=== PATIENT | male | born 1980 | race Caucasian/White ===

== ENCOUNTER 2022-12-27 17:43 | Emergency (ER) | payer OTHER ==
[2022-12-27 17:58] VITALS: TEMP 98.6
[2022-12-27] MEDS ORDERED: Sodium Chloride 0.9% 1000 ML 1,000 ML IV STA ×2 (18:08→19:34)
[2022-12-27] MEDS ORDERED: Sodium Chloride 0.9% 1000 ML 1,000 ML ONE ×2 (18:18→19:41)
[2022-12-27 18:20] LABS: Absolute Neutrophil Ct (ANC) 11.24 x10^3/uL (1.4-6.9); BASOPHIL % 0.3 % (0.0-0.4); Basophil (Absolute #) 0.05 x10^3/uL (0-0.4); Eosinophil % 0.1 % (0.00-5.0); Eosinophil (Absolute #) 0.01 x10^3/uL (0-0.5); Hematocrit 51.1 % (42-50); Hemoglobin 17.7 g/dL (12.5-18.0); IMMATURE GRAN # 0.07 x10^3u/L (0.00-0.03); IMMATURE GRAN % 0.5 % (0.00-0.4); Lymphocyte (Absolute #) 2.17 x10^3/uL (1.0-4.6); Lymphocytes % 14.9 % (24.0-44.0); Mean Cell Volume 86.6 fL (78-100); Mean Corpuscular Hgb Concent. 34.6 g/dL (32-36); Mean Platelet Volume 9.3 fL (7.5-11.0); Monocyte (Absolute #) 1.02 x10^3/uL (0.0-1.3); Neutrophil % 77.2 % (36.0-66.0); Platelet Count 370 x10^3/uL (150-450); Red Cell Distribution Width 12.7 % (11.5-14.0); White Blood Count 14.6 x10^3/uL (4.0-10.5)
[2022-12-27 18:27] LABS: INR 1.03 (0.8-3.0); PROTIME 11.2 SECONDS (9.4-12.5)
--- NOTE | 2022-12-27 18:27 | ERPHSYRPT ---
- History of Present Illness Patient Subjective Stated Complaint: PT HERE FOR NOT ACTING HE NORMAL. PT WAS BEEN BEEN IN DETENTION FOR 6 DAYS AND THIS BEHAVIOR STARTED 2 DAYS AGO. PT HAS LONG MENTAL HEALTH AND DRUG HISTORY, PT STATES HE USED SPICE AND METH 9 DAYS AGO NOW. Triage Nursing Assessment: PT ARRIVED PER OFFICER, ALERT, RESTLESS,FLIGHT OF IDEAS, STATES HE HAS BEEN SEEING THINGS AND HEARING VOICES, HE STATES HE B EEN IN [facility] RECENTLY, RESP EASY, SKIN WARM,MOIST AND PINK, MOVES ALL EXT WELL, HAND CUFFES TO LEGS AND LEFT WRIST Timing/Duration: day(s) (6) Severity: moderate Associated Symptoms: diaphoresis Hx Tetanus, Diphtheria Vaccination/Date Given: No Hx Influenza Vaccination/Date Given: No Hx Pneumococcal Vaccination/Date Given: No Immunizations Up to Date: Yes <RUDY HUPMHREYS - Last Filed: 12/27/22 18:22> <ENMA DUMONT - Last Filed: 12/27/22 22:21> - History of Present Illness Time Seen by Provider: 12/27/22 17:55 Physician History: Patient is a 42-year-old white male who presents after being in penitentiary for 6 days with profound and sudden onset of symptoms of withdrawal. 2 days ago he began with profuse sweating hallucinating both visually and auditory. He has a long psych history he has been treated at [place] [facility]. On arrival in the ER he was markedly diaphoretic but he is says that he is eating and drinking fine he has trouble sleeping at night and paces 4 hours in his cell. (RUDY HUMPHREYS) Allergies/Adverse Reactions: No Known Drug Allergies Allergy (Unverified 12/27/22 17:45) Home Medications: Mirtazapine 15 mg PO HS 12/27/22 [History] Travel Risk - International Travel Have you traveled outside of the country in past 3 weeks: No - Coronavirus Screening Are you exhibiting any of the following symptoms?: No Close contact with a COVID-19 positive Pt in past 14-21 Days: No - Vaccine Status Have you recieved a Covid-19 vaccination: Yes [employer]ical [employer] Work[employer]: Moderna - Vaccination Dates Date of 2cond Vaccination (if applicable): 2020 <RUDY HUMPHREYS - Last Filed: 12/27/22 18:22> - Review of Systems Constitutional: Night Sweats, No Fever, No Chills Eyes: No Symptoms Ears, Nose, & Throat: No Symptoms Respiratory: No Cough, No Dyspnea Cardiac: No Chest Pain, No Edema, No Syncope Abdominal/Gastrointestinal: No Abdominal Pain, No Nausea, No Vomiting, No Diarrhea Genitourinary Symptoms: No Dysuria Musculoskeletal: No Back Pain, No Neck Pain Skin: No Rash Neurological: Irritability, No Dizziness, No Focal Weakness, No Sensory Changes Psychological: Anxiety, Hallucinations Endocrine: No Symptoms Hematologic/Lymphatic: No Symptoms Immunological/Allergic: No Symptoms All Other Systems: Reviewed and Negative <MARYANN MARIERUDY - Last Filed: 12/27/22 18:22> - Past Medical History Pertinent Past Medical History: Yes Psycho-Social History: Anxiety, Attention Deficit Disorder, Bipolar, Depression - Past Surgical History Past Surgical History: No - Social History Smoking Status: Current every day smoker Exposure to second hand smoke: Yes Drug Use: bath salts, methamphetamines Patient Lives Alone: No (DETENTION) <RUDY HUMPHREYS Filed: 12/27/22 18:22> - Physical Exam General Appearance: mild distress, anxiety Eye Exam: PERRL/EOMI, eyes nml inspection Ears, Nose, Throat Exam: normal ENT inspection, TMs normal, pharynx normal, moist mucous membranes Neck Exam: normal inspection, non-tender, supple, full range of motion Respiratory Exam: normal breath sounds, lungs clear, No respiratory distress Cardiovascular Exam: regular rate/rhythm, normal heart sounds, normal peripheral pulses Gastrointestinal/Abdomen Exam: soft, normal bowel sounds, No tenderness, No mass Back Exam: normal inspection, normal range of motion, No CVA tenderness, No vertebral tenderness Extremity Exam: normal inspection, normal range of motion, pelvis stable Neurologic Exam: alert, cooperative, confusion, agitation Skin Exam: normal color, warm, dry, No rash Lymphatic Exam: No adenopathy SpO2 Interpretation: normal SpO2: 96 O2 Delivery: Room Air <MARYANN MARIERUDY Filed: 12/27/22 18:22> - Nursing Vital Signs Nursing Vital Signs: Initial Vital Signs Temperature 98.6 F 12/27/22 17:45 Pulse Rate 115 H 12/27/22 17:45 Respiratory Rate 22 12/27/22 17:45 Blood Pressure 161/103 12/27/22 17:45 O2 Sat by Pulse Oximetry 96 12/27/22 17:45 Pain Scale Pain Intensity 4 - Course Nursing assessment & vital signs reviewed: Yes EKG Interpreted by Me: RATE (105), Sinus Tach, NORMAL AXIS, NORMAL INTERVALS, No n-specific ST Changes <JULIANNRUDY - Last Filed: 12/27/22 18:22> Ordered Tests: Active Orders 24 hr Category Date Time Status ACETAMINOPHEN Stat Lab 12/27/22 18:00 Completed CBC W DIFF Stat Lab 12/27/22 18:00 Completed CMP Stat Lab 12/27/22 18:00 Completed CULTURE,URINE Stat Lab 12/27/22 21:00 Received ETHYL ALCOHOL Stat Lab 12/27/22 18:00 Completed Hepatic Function Panel Stat Lab 12/27/22 18:00 Completed Lactic Acid Stat Lab 12/27/22 18:25 Completed Lactic Acid Stat Lab 12/27/22 20:30 Completed PROTIME WITH INR Stat Lab 12/27/22 18:00 Completed SALICYLATE Stat Lab 12/27/22 18:00 Completed TROPONIN Q4H Lab 12/27/22 18:00 Completed TROPONIN Q4H Lab 12/27/22 22:11 Received UA W/RFX UR CULTURE Stat Lab 12/27/22 21:00 Completed Urine Triage Profile Stat Lab 12/27/22 21:00 Completed Medication Summary Discontinued Medications Generic Name Dose Route Start Last Admin Trade Name Freq PRN Reason Stop Dose Admin Sodium Chloride 1,000 mls @ 999 mls/hr 12/27/22 18:08 12/27/22 19:32 Sodium Chloride 0.9% 1000 Ml IV 12/27/22 19:08 Infused .Q1H1M STA Infusion Sodium Chloride Confirm 12/27/22 18:18 Sodium Chloride 0.9% 1000 Ml Administered 12/27/22 18:19 Dose 1,000 mls @ ud .ROUTE .STK-MED ONE Ceftriaxone Sodium/Dextrose 1 g in 50 mls @ 100 mls/hr 12/27/22 19:18 12/27/22 21:48 Rocephin 1 Gm-D5w 50 Ml Bag IV 12/27/22 19:47 Infused STAT STA Infusion Ceftriaxone Sodium/Dextrose Confirm 12/27/22 19:23 Rocephin 1 Gm-D5w 50 Ml Bag Administered 12/27/22 19:24 Dose 1 g in 50 mls @ ud IV .STK-MED ONE Sodium Chloride 1,000 mls @ 999 mls/hr 12/27/22 19:34 12/27/22 21:48 Sodium Chloride 0.9% 1000 Ml IV 12/27/22 20:34 Infused .Q1H1M STA Infusion Sodium Chloride Confirm 12/27/22 19:41 Sodium Chloride 0.9% 1000 Ml Administered 12/27/22 19:42 Dose 1,000 mls @ ud .ROUTE .STK-MED ONE Lorazepam 1 mg 12/27/22 19:18 12/27/22 19:24 Lorazepam 1 Mg Tablet PO 12/27/22 19:19 1 mg STAT ONE Administration Lorazepam Confirm 12/27/22 19:23 Lorazepam 1 Mg Tablet Administered 12/27/22 19:24 Dose 1 mg .ROUTE .STK-MED ONE Lab/Rad Data: Laboratory Result Diagrams 12/27/22 18:00 12/27/22 18:00 Laboratory Results 12/27/22 12/27/22 12/27/22 Range/Units 21:00 21:00 20:30 WBC (4.0-10.5) x10^3/uL RBC (4.1-5.6) x10^6/uL Hgb (12.5-18.0) g/dL Hct (42-50) % MCV (78-100) fL MCH (26-32) pg MCHC (32-36) g/dL RDW (11.5-14.0) % Plt Count (150-450) x10^3/uL MPV (7.5-11.0) fL Gran % (36.0-66.0) % Immature Gran % (Auto) (0.00-0.4) % Nucleat RBC Rel Count (0.00-0.1) % Eos # (Auto) (0-0.5) x10^3/uL Immature Gran # (Auto) (0.00-0.03) x10^3u/L Absolute Lymphs (auto) (1.0-4.6) x10^3/uL Absolute Monos (auto) (0.0-1.3) x10^3/uL Absolute Nucleated RBC (0.00-0.01) x10^3u/L Lymphocytes % (24.0-44.0) % Monocytes % (0.0-12.0) % Eosinophils % (0.00-5.0) % Basophils % (0.0-0.4) % Absolute Granulocytes (1.4-6.9) x10^3/uL Basophils # (0-0.4) x10^3/uL PT (9.4-12.5) SECONDS INR (0.8-3.0) Sodium (137-145) mmol/L Potassium (3.5-5.1) mmol/L Chloride (98-107) mmol/L Carbon Dioxide (22-30) mmol/L Anion Gap (5-15) MEQ/L BUN (9-20) mg/dL Creatinine (0.66-1.25) mg/dL Estimated GFR ML/MIN Glucose (74-106) mg/dL Lactic Acid 1.2 (0.4-2.0) Calcium (8.4-10.2) mg/dL Total Bilirubin (0.2-1.3) mg/dL Direct Bilirubin (0.0-0.4) mg/dL AST (17-59) U/L ALT (0-50) U/L Alkaline Phosphatase (38-126) U/L Troponin I (0.000-0.034) ng/mL Serum Total Protein (6.3-8.2) g/dL Albumin (3.5-5.0) g/dL Urine Color Yellow (Yellow) Urine Appearance Clear (Clear) Urine pH 5.0 (4.6-8.0) Ur Specific [place] >=1.030 A (1.005-1.030) Urine Protein 100 A (Negative) Urine Glucose (UA) Negative (Negative) mg/dL Urine Ketones 40 A (Negative) Urine Blood Small A (Negative) Urine Nitrite Negative (Negative) Urine Bilirubin Negative (Negative) Urine Urobilinogen 0.2 (0.2) mg/dL Ur Leukocyte Esterase Negative (Negative) U Hyaline Cast (Auto) 11-20 (0-2) /LPF Urine Microscopic RBC 0-2 (0-5) /HPF Urine Microscopic WBC 0-2 (0-5) /HPF Ur Epithelial Cells None Seen (None Seen) /HPF Urine Bacteria None Seen (None Seen) /HPF Urine Culture Reflexed YES (NO) Salicylates (2-20) mg/dL Urine Opiates Level NEGATIVE (NEGATIVE) Ur Methadone NEGATIVE (NEGATIVE) Acetaminophen (10-30) ug/ml Urine Barbiturates NEGATIVE (NEGATIVE) Ur Phencyclidine (PCP) NEGATIVE (NEGATIVE) Urine Amphetamine NEGATIVE (NEGATIVE) U Benzodiazepine Level NEGATIVE (NEGATIVE) Urine Cocaine NEGATIVE (NEGATIVE) Urine Marijuana (THC) NEGATIVE (NEGATIVE) Ethyl Alcohol (0-10) mg/dL 12/27/22 12/27/22 12/27/22 Range/Units 18:25 18:00 18:00 WBC (4.0-10.5) x10^3/uL RBC (4.1-5.6) x10^6/uL Hgb (12.5-18.0) g/dL Hct (42-50) % MCV (78-100) fL MCH (26-32) pg MCHC (32-36) g/dL RDW (11.5-14.0) % Plt Count (150-450) x10^3/uL MPV (7.5-11.0) fL Gran % (36.0-66.0) % Immature Gran % (Auto) (0.00-0.4) % Nucleat RBC Rel Count (0.00-0.1) % Eos # (Auto) (0-0.5) x10^3/uL Immature Gran # (Auto) (0.00-0.03) x10^3u/L Absolute Lymphs (auto) (1.0-4.6) x10^3/uL Absolute Monos (auto) (0.0-1.3) x10^3/uL Absolute Nucleated RBC (0.00-0.01) x10^3u/L Lymphocytes % (24.0-44.0) % Monocytes % (0.0-12.0) % Eosinophils % (0.00-5.0) % Basophils % (0.0-0.4) % Absolute Granulocytes (1.4-6.9) x10^3/uL Basophils # (0-0.4) x10^3/uL PT 11.2 (9.4-12.5) SECONDS INR 1.03 (0.8-3.0) Sodium (137-145) mmol/L Potassium (3.5-5.1) mmol/L Chloride (98-107) mmol/L Carbon Dioxide (22-30) mmol/L Anion Gap (5-15) MEQ/L BUN (9-20) mg/dL Creatinine (0.66-1.25) mg/dL Estimated GFR ML/MIN Glucose (74-106) mg/dL Lactic Acid 2.6 H (0.4-2.0) Calcium (8.4-10.2) mg/dL Total Bilirubin (0.2-1.3) mg/dL Direct Bilirubin (0.0-0.4) mg/dL AST (17-59) U/L ALT (0-50) U/L Alkaline Phosphatase (38-126) U/L Troponin I < 0.012 (0.000-0.034) ng/mL Serum Total Protein (6.3-8.2) g/dL Albumin (3.5-5.0) g/dL Urine Color (Yellow) Urine Appearance (Clear) Urine pH (4.6-8.0) Ur Specific [place] (1.005-1.030) Urine Protein (Negative) Urine Glucose (UA) (Negative) mg/dL Urine Ketones (Negative) Urine Blood (Negative) Urine Nitrite (Negative) Urine Bilirubin (Negative) Urine Urobilinogen (0.2) mg/dL Ur Leukocyte Esterase (Negative) U Hyaline Cast (Auto) (0-2) /LPF Urine Microscopic RBC (0-5) /HPF Urine Microscopic WBC (0-5) /HPF Ur Epithelial Cells (None Seen) /HPF Urine Bacteria (None Seen) /HPF Urine Culture Reflexed (NO) Salicylates (2-20) mg/dL Urine Opiates Level (NEGATIVE) Ur Methadone (NEGATIVE) Acetaminophen (10-30) ug/ml Urine Barbiturates (NEGATIVE) Ur Phencyclidine (PCP) (NEGATIVE) Urine Amphetamine (NEGATIVE) U Benzodiazepine Level (NEGATIVE) Urine Cocaine (NEGATIVE) Urine Marijuana (THC) (NEGATIVE) Ethyl Alcohol (0-10) mg/dL 12/27/22 12/27/22 Range/Units 18:00 18:00 WBC 14.6 H (4.0-10.5) x10^3/uL RBC 5.90 H (4.1-5.6) x10^6/uL Hgb 17.7 (12.5-18.0) g/dL Hct 51.1 H (42-50) % MCV 86.6 (78-100) fL MCH 30.0 (26-32) pg MCHC 34.6 (32-36) g/dL RDW 12.7 (11.5-14.0) % Plt Count 370 (150-450) x10^3/uL MPV 9.3 (7.5-11.0) fL Gran % 77.2 H (36.0-66.0) % Immature Gran % (Auto) 0.5 H (0.00-0.4) % Nucleat RBC Rel Count 0.0 (0.00-0.1) % Eos # (Auto) 0.01 (0-0.5) x10^3/uL Immature Gran # (Auto) 0.07 H (0.00-0.03) x10^3u/L Absolute Lymphs (auto) 2.17 (1.0-4.6) x10^3/uL Absolute Monos (auto) 1.02 (0.0-1.3) x10^3/uL Absolute Nucleated RBC 0.00 (0.00-0.01) x10^3u/L Lymphocytes % 14.9 L (24.0-44.0) % Monocytes % 7.0 (0.0-12.0) % Eosinophils % 0.1 (0.00-5.0) % Basophils % 0.3 (0.0-0.4) % Absolute Granulocytes 11.24 H (1.4-6.9) x10^3/uL Basophils # 0.05 (0-0.4) x10^3/uL PT (9.4-12.5) SECONDS INR (0.8-3.0) Sodium 139 (137-145) mmol/L Potassium 4.2 (3.5-5.1) mmol/L Chloride 103 (98-107) mmol/L Carbon Dioxide 17 L (22-30) mmol/L Anion Gap 24.5 H (5-15) MEQ/L BUN 28 H (9-20) mg/dL Creatinine 1.35 H (0.66-1.25) mg/dL Estimated GFR 67.7 ML/MIN Glucose 111 H (74-106) mg/dL Lactic Acid (0.4-2.0) Calcium 10.8 H (8.4-10.2) mg/dL Total Bilirubin 1.70 H (0.2-1.3) mg/dL Direct Bilirubin 0.1 (0.0-0.4) mg/dL AST 51 (17-59) U/L ALT 34 (0-50) U/L Alkaline Phosphatase 100 (38-126) U/L Troponin I (0.000-0.034) ng/mL Serum Total Protein 9.2 H (6.3-8.2) g/dL Albumin 5.5 H (3.5-5.0) g/dL Urine Color (Yellow) Urine Appearance (Clear) Urine pH (4.6-8.0) Ur Specific [place] (1.005-1.030) Urine Protein (Negative) Urine Glucose (UA) (Negative) mg/dL Urine Ketones (Negative) Urine Blood (Negative) Urine Nitrite (Negative) Urine Bilirubin (Negative) Urine Urobilinogen (0.2) mg/dL Ur Leukocyte Esterase (Negative) U Hyaline Cast (Auto) (0-2) /LPF Urine Microscopic RBC (0-5) /HPF Urine Microscopic WBC (0-5) /HPF Ur Epithelial Cells (None Seen) /HPF Urine Bacteria (None Seen) /HPF Urine Culture Reflexed (NO) Salicylates < 1.0 L (2-20) mg/dL Urine Opiates Level (NEGATIVE) Ur Methadone (NEGATIVE) Acetaminophen < 10 L (10-30) ug/ml Urine Barbiturates (NEGATIVE) Ur Phencyclidine (PCP) (NEGATIVE) Urine Amphetamine (NEGATIVE) U Benzodiazepine Level (NEGATIVE) Urine Cocaine (NEGATIVE) Urine Marijuana (THC) (NEGATIVE) Ethyl Alcohol < 10 (0-10) mg/dL <ENMA DUMONT - Last Filed: 12/27/22 22:21> - Progress Progress Note: 12/27/22 19:[address] Dumont @ 1907: perrl, eomi, right TM erythematous, pharynx pink, lungs clear, no cardiac rub abdominal B.S mildly hyperactive and normotonic, congenital deformity of hands, alert & anxious & cooperative. (ENMA DUMONT) Medical Desision Making - Diagnostic Testing Diagnostic test were ordered, analyzed, and reviewed by me: Yes <ENMA DUMONT - Last Filed: 12/27/22 22:21> - Departure Departure Disposition: Assisted/Senior Care <RUDY HUMPHREYS - Last Filed: 12/27/22 18:22> - Departure Departure Disposition: Assisted/Senior Care Critical Care Time: No <ENMA DUMONT - Last Filed: 12/27/22 22:21> - Departure Clinical Impression: Right otitis media, Anxiety Condition: Stable Referrals: DOCTOR,NO FAMILY [Primary Care Provider] - Follow up/PCP as directed Instructions: Ear Infections (Otitis Media) in Adults (DC) Additional Instructions: Follow up with private doctor tomorrow. Drink plenty of fluids. Prescriptions: Azithromycin 250 mg [Zithromax 250 MG TABLET] 250 mg PO ZPACK #6 tablet
[2022-12-27 18:28] LABS: ACETAMINOPHEN < 10 ug/ml (10-30); ALBUMIN 5.5 g/dL (3.5-5.0); ALKALINE PHOSPHATASE 100 U/L (38-126); ANION GAP 24.5 MEQ/L (5-15); BLOOD UREA NITROGEN 28 mg/dL (9-20); CHLORIDE 103 mmol/L (98-107); Calcium 10.8 mg/dL (8.4-10.2); Creatinine 1 1.35 mg/dL (0.66-1.25); Direct Bilirubin 0.1 mg/dL (0.0-0.4); EST GLOMERULAR FILTRATION RATE 67.7 ML/MIN; ETHYL ALCOHOL < 10 mg/dL (0-10); Glucose 111 mg/dL (74-106); Potassium 4.2 mmol/L (3.5-5.1); SALICYLATE < 1.0 mg/dL (2-20); SGOT/AST 51 U/L (17-59); SGPT/ALT 34 U/L (0-50); SODIUM 139 mmol/L (137-145); Total Protein 9.2 g/dL (6.3-8.2)
[2022-12-27 18:32] LABS: Carbon Dioxide 17 mmol/L (22-30)
[2022-12-27] MEDS ORDERED: ROCEPHIN 1 Gm-D5w 50 ml Bag** 1 G/50 ML IVPB IV STA (19:18)
[2022-12-27] MEDS ORDERED: Ativan 1 MG PO ONE (19:18)
[2022-12-27] MEDS ORDERED: Ativan 1 MG ONE (19:23)
[2022-12-27] MEDS ORDERED: ROCEPHIN 1 Gm-D5w 50 ml Bag** 1 G/50 ML IVPB IV ONE (19:23)
[2022-12-27 21:45] LABS: Amphetamine,Urine NEGATIVE (NEGATIVE); Barbiturate,Urine NEGATIVE (NEGATIVE); Benzodiazepine,Urine NEGATIVE (NEGATIVE); Cocaine,Urine NEGATIVE (NEGATIVE); Methadone,Urine NEGATIVE (NEGATIVE); Opiate,Urine NEGATIVE (NEGATIVE); PCP,Urine NEGATIVE (NEGATIVE); THC,Urine NEGATIVE (NEGATIVE)
[2022-12-27 21:59] LABS: Appearance Clear (Clear); Bacteria None Seen /HPF (None Seen); Bilirubin Negative (Negative); Blood Small (Negative); Epithelial Cells None Seen /HPF (None Seen); Glucose, Urine Negative (Negative); Ketones 40 (Negative); Leukocyte Esterase Negative (Negative); Nitrite Negative (Negative); Protein,Urine Dip 100 (Negative); RBC 0-2 /HPF (0-5); Specific Gravity >=1.030 (1.005-1.030); Urobilinogen 0.2 mg/dL (0.2); WBC 0-2 /HPF (0-5)
[2022-12-27 22:00] LABS: ADD URINE CULTURE? YES (NO)
[2022-12-27 22:29] VITALS: BP 135/71; PULSE 94; RESP 18; O2SAT 96
== END 2022-12-27 22:26 | disposition home or self-care (01) ==
LOC: ED 17:43
DX: H66.91 Otitis media, unspecified, right ear (principal); F41.9 Anxiety disorder, unspecified; F19.239 Other psychoactive substance dependence with withdrawal, unspecified; Z79.899 Other long term (current) drug therapy; Z72.0 Tobacco use
CPT/HCPCS: 36415; 80053; 80076; 80143; 80179; 80307; 81001; 82077; 83605; 84484; 85025; 85610; 87086; 96365; 99284; J0696; A9270-GY

== ENCOUNTER 2022-12-29 21:40 | Emergency (ER) | payer OTHER ==
[2022-12-29 22:12] LABS: Hematocrit 52.1 % (42-50); Hemoglobin 18.1 g/dL (12.5-18.0); Mean Cell Volume 85.8 fL (78-100); Mean Corpuscular Hemoglobin 29.8 pg (26-32); Mean Corpuscular Hgb Concent. 34.7 g/dL (32-36); Platelet Count 316 x10^3/uL (150-450); Red Blood Count 6.07 x10^6/uL (4.1-5.6); Red Cell Distribution Width 13.3 % (11.5-14.0)
--- NOTE | 2022-12-29 22:14 | ERPHSYRPT ---
- History of Present Illness Time Seen by Provider: 12/29/22 21:50 Source: patient Exam Limitations: no limitations Patient Subjective Stated Complaint: EMS was called to group home for hypotension on pt. Pt has altered mental status. Triage Nursing Assessment: pt brought in by ambulance from [facility]. EMS was called to group home on pt for hypotension. Pt is confused, mumbling, incomprehensible most of the time, garbled speech, and restless. Officers inform us that pt has been this way for approx 4 days. Pupils are 3mm and slugglish. Pt is accompanied by 2 group home officers. Lungs clear, heart tones reg, abd soft with active bs x4 quad, nontender. Pt has dark bruises noted to bilat hands, bilat elbows, right foot and 3 toe on right foot. Officers informed us that pt has been in a padded cell x4 days and has been slamming himself into the door and meredith, which has resulted in the bruises. Rt hand is swollen at knuckle area. Physician History: Patient a 42-year-old group home inmate presents to our ED via EMS for evaluation of altered mental status. EMS informed us that they were called due to patient's altered mental status and hypotension. However patient has not been hypotensive during EMSs management of our patient. Patient was not hypotensive upon arrival to our ED. Per report patient was confined to a padded group home cell for 4 days. Patient has been slamming himself against the meredith. Patient unable to provide information towards HPI. He is confused. Patient appears restless. Patient is observed to mumble every once in a while. Portions of this note were created with voice recognition technology. There may be grammatical, spelling, punctuation or sound alike errors Timing/Duration: today Severity: moderate Modifying Factors: Improves With: nothing Associated Symptoms: denies symptoms Allergies/Adverse Reactions: No Known Drug Allergies Allergy (Verified 12/29/22 22:08) Home Medications: Mirtazapine [Remeron] 15 mg PO HS 12/29/22 [History] Hx Tetanus, Diphtheria Vaccination/Date Given: (unknown) Hx Influenza Vaccination/Date Given: (unknown) Hx Pneumococcal Vaccination/Date Given: No Travel Risk - International Travel Have you traveled outside of the country in past 3 weeks: No - Coronavirus Screening Are you exhibiting any of the following symptoms?: No Close contact with a COVID-19 positive Pt in past 14-21 Days: No - Vaccine Status Have you recieved a Covid-19 vaccination: Yes Diver Assistant: Unknown - Vaccination Dates Dates if Unknown: . - Review of Systems All Other Systems: Unable due to condition - Past Medical History Pertinent Past Medical History: Yes Psycho-Social History: Anxiety, Attention Deficit Disorder, Bipolar, Depression - Past Surgical History Past Surgical History: No Other Surgical History: defect with missing fingers bilat - Social History Smoking Status: Unknown if ever smoked Exposure to second hand smoke: Yes Drug Use: bath salts, methamphetamines Patient Lives Alone: No (in group home) - Nursing Vital Signs Nursing Vital Signs: Initial Vital Signs Temperature 98.4 F 12/29/22 21:46 Pulse Rate 116 H 12/29/22 21:46 Respiratory Rate 28 H 12/29/22 21:46 Blood Pressure 147/108 12/29/22 21:46 O2 Sat by Pulse Oximetry 100 12/29/22 21:46 Pain Scale Pain Intensity 0 - Physical Exam General Appearance: no apparent distress, alert Eye Exam: PERRL/EOMI, eyes nml inspection Ears, Nose, Throat Exam: normal ENT inspection, TMs normal, pharynx normal, moist mucous membranes Neck Exam: normal inspection, non-tender, supple, full range of motion Respiratory Exam: normal breath sounds, lungs clear, airway intact, No resp iratory distress Cardiovascular Exam: regular rate/rhythm, normal heart sounds, normal peripheral pulses Gastrointestinal/Abdomen Exam: soft, normal bowel sounds, No tenderness, No mass Back Exam: normal inspection, normal range of motion, No CVA tenderness, No vertebral tenderness Extremity Exam: normal inspection, normal range of motion, pelvis stable, other (Bruising to both hands and feet. ) Neurologic Exam: alert, oriented x 3, cooperative, normal mood/affect, nml cerebellar function, nml station & gait, sensation nml, No motor deficits Skin Exam: normal color, warm, dry, No rash Lymphatic Exam: No adenopathy SpO2 Interpretation: normal SpO2: 100 O2 Delivery: Room Air - Course Nursing assessment & vital signs reviewed: Yes EKG Interpreted by Me: RATE ([id number]), Sinus Tach, NORMAL AXIS, NORMAL INTERVALS - Radiology Exams Hand X-ray Interpretation: Interpreted by me (No acute findings in either the left or right hand) Elbow X-ray Interpretation: Interpreted by me (No acute findings in either the right or left elbow) Foot X-ray Interpretation: Interpreted by me (No acute findings in either the right or left foot) - CT Exams Head CT Interpretation: Tele-radiologist Report (Suspicious faint hyperdensities in the left parietal region are not typical for the extra-axial subdural hemorrhage however the possibility of hemorrhage cannot be entirely excluded. Recommend clinical correlation and short interval CT follow-up. No other associated abnormalities noted fracture) Cervical Spine CT Interpretation: Tele-radiologist Report (No definite acute fracture or dislocation was detected in the cervical spine. No acute abnormalities. Early cervical spondylosis.) Ordered Tests: Active Orders 24 hr Category Date Time Status Land Leasing Information Clerk STAT Care 12/29/22 22:05 Active EKG-ER Only STAT Care 12/29/22 22:05 Active Mckeon [Catheter-[place] Mckeon] STAT Care 12/29/22 22:11 Active IV Insertion STAT Care 12/29/22 21:58 Active IV Insertion-2nd Peripheral STAT Care 12/29/22 21:58 Active Pulse Oximetry (ED) STAT Care 12/29/22 22:05 Active CERVICAL SPINE WO CONTRAST [CT] Stat Exams 12/29/22 22:02 Completed ELBOW (MINIMUM 3 VIEWS) Stat Exams 12/29/22 22:41 Taken ELBOW (MINIMUM 3 VIEWS) Stat Exams 12/29/22 22:42 Taken FOOT (MINIMUM 3 VIEWS) Stat Exams 12/29/22 22:37 Taken FOOT (MINIMUM 3 VIEWS) Stat Exams 12/29/22 22:38 Taken HAND (MINIMUM 3 VIEWS) Stat Exams 12/29/22 22:36 Taken HAND (MINIMUM 3 VIEWS) Stat Exams 12/29/22 22:37 Taken HEAD WITHOUT CONTRAST [CT] Stat Exams 12/29/22 22:02 Completed ABG [ARTERIAL BLOOD GASES] Stat Lab 12/29/22 23:05 Completed ACETAMINOPHEN Stat Lab 12/29/22 22:00 Completed BLOOD CULTURE Stat Lab 12/29/22 22:05 Received CBC W DIFF Stat Lab 12/29/22 22:00 Completed CK-Creatinine Phosphokinase Stat Lab 12/29/22 22:36 Completed CMP Stat Lab 12/29/22 22:00 Completed CMP Stat Lab 12/30/22 01:23 Completed CULTURE,URINE Stat Lab 12/29/22 22:12 Received ETHYL ALCOHOL Stat Lab 12/29/22 22:00 Completed Lactic Acid Stat Lab 12/29/22 22:20 Completed Lactic Acid Stat Lab 12/29/22 23:18 Completed MAG [MAGNESIUM] Stat Lab 12/29/22 22:00 Completed Manual Differential NC Stat Lab 12/29/22 22:00 Completed SALICYLATE Stat Lab 12/29/22 22:00 Completed UA W/RFX UR CULTURE Stat Lab 12/29/22 22:11 Completed Urine Triage Profile Stat Lab 12/29/22 22:11 Completed Medication Summary Generic Name Dose Route Start Last Admin Trade Name Freq PRN Reason Stop Dose Admin Sodium Chloride 1,000 mls @ 100 mls/hr 12/29/22 22:15 12/29/22 22:19 Sodium Chloride 0.9% 1000 Ml IV 01/28/23 22:14 100 mls/hr .Q10H RUY Administration Dextrose/Sodium Chloride 1,000 mls @ 250 mls/hr 12/29/22 23:45 12/29/22 23:56 Dextrose 5% -0.45 Nacl 1000 Ml IV 01/28/23 23:44 250 mls/hr .Q4H RUY Administration Sodium Chloride 1,000 mls @ 999 mls/hr 12/30/22 02:31 12/30/22 02:33 Sodium Chloride 0.9% 1000 Ml IV 12/30/22 03:31 999 mls/hr .Q1H1M STA Administration Discontinued Medications Generic Name Dose Route Start Last Admin Trade Name Freq PRN Reason Stop Dose Admin Ketamine HCl 15 mg 12/29/22 22:14 12/29/22 22:39 Ketamine Hcl 50 Mg/Ml IV 12/29/22 22:15 15 mg STAT ONE Administration Ketamine HCl 50 mg 12/29/22 23:23 12/29/22 23:43 Ketamine Hcl 50 Mg/Ml IV 12/29/22 23:24 50 mg STAT ONE Administration Ketamine HCl 30 mg 12/29/22 23:28 12/29/22 23:29 Ketamine Hcl 50 Mg/Ml IV 12/29/22 23:29 Not Given STAT ONE Lab/Rad Data: Laboratory Result Diagrams 12/29/22 22:00 12/30/22 01:23 Laboratory Results 11/15/23 11/14/23 11/14/23 Range/Units 01:23 23:18 23:05 WBC (4.0-10.5) x10^3/uL RBC (4.1-5.6) x10^6/uL Hgb (12.5-18.0) g/dL Hct (42-50) % MCV (78-100) fL MCH (26-32) pg MCHC (32-36) g/dL RDW (11.5-14.0) % Plt Count (150-450) x10^3/uL MPV (7.5-11.0) fL Segmented Neutrophils (36.-66.) % Lymphocytes (Manual) (24-44) % Monocytes (Manual) (0.0-12.0) % Platelet Estimate (NORMAL) RBC Morphology Puncture Site LEFT RADIAL pCO2 25 L (35-45) mmHg pO2 109 H (75-100) mmHg Base Excess -8.4 L (-2.0-2.0) O2 Saturation 97.1 (94-100) g/dF ABG pH 7.37 (7.35-7.45) ABG HCO3 14.5 L* (22-28) ABG O2 Sat (Measured) 99.1 (95-100) % Brandon Test YES A-a Gradient 9 a/A Ratio 0.92 Hemoglobin 18.2 Carboxyhemoglobin 1.0 (0.0-6.9) % THgb Methemoglobin 0.9 L (1.4-1.5) % Temperature 37.0 C POC O2 Flow Rate 21 % Sodium 146 H (137-145) mmol/L Potassium 4.3 4.3 (3.5-5.1) mmol/L Chloride 112 H (98-107) mmol/L Carbon Dioxide 15 L* (22-30) mmol/L Anion Gap 22.4 H (5-15) MEQ/L BUN 124 H (9-20) mg/dL Creatinine 5.92 H (0.66-1.25) mg/dL Estimated GFR 11.5 ML/MIN Glucose 210 H (74-106) mg/dL Lactic Acid 1.3 (0.4-2.0) Calcium 8.3 L (8.4-10.2) mg/dL Magnesium (1.6-2.3) mg/dL Total Bilirubin 1.20 (0.2-1.3) mg/dL AST 714 H (17-59) U/L ALT 198 H (0-50) U/L Alkaline Phosphatase 77 (38-126) U/L Ammonia (9-30) umol/L Creatine Kinase (55-170) U/L Serum Total Protein 8.1 (6.3-8.2) g/dL Albumin 5.0 (3.5-5.0) g/dL Urine Color (Yellow) Urine Appearance (Clear) Urine pH (4.6-8.0) Ur Specific Beaver (1.005-1.030) Urine Protein (Negative) Urine Glucose (UA) (Negative) mg/dL Urine Ketones (Negative) Urine Blood (Negative) Urine Nitrite (Negative) Urine Bilirubin (Negative) Urine Urobilinogen (0.2) mg/dL Ur Leukocyte Esterase (Negative) U Hyaline Cast (Auto) (0-2) /LPF Urine Microscopic RBC (0-5) /HPF Urine Microscopic WBC (0-5) /HPF Ur Epithelial Cells (None Seen) /HPF Urine Bacteria (None Seen) /HPF Urine Culture Reflexed (NO) Salicylates (2-20) mg/dL Urine Opiates Level (NEGATIVE) Ur Methadone (NEGATIVE) Acetaminophen (10-30) ug/ml Urine Barbiturates (NEGATIVE) Ur Phencyclidine (PCP) (NEGATIVE) Urine Amphetamine (NEGATIVE) U Benzodiazepine Level (NEGATIVE) Urine Cocaine (NEGATIVE) Urine Marijuana (THC) (NEGATIVE) Ethyl Alcohol (0-10) mg/dL Influenza Type A Ag (NEGATIVE) Influenza Type B Ag (NEGATIVE) RSV (PCR) (NEGATIVE) SARS-CoV-2 (PCR) (NEGATIVE) 12/29/22 12/29/22 12/29/22 Range/Units 22:36 22:36 22:36 WBC (4.0-10.5) x10^3/uL RBC (4.1-5.6) x10^6/uL Hgb (12.5-18.0) g/dL Hct (42-50) % MCV (78-100) fL MCH (26-32) pg MCHC (32-36) g/dL RDW (11.5-14.0) % Plt Count (150-450) x10^3/uL MPV (7.5-11.0) fL Segmented Neutrophils (36.-66.) % Lymphocytes (Manual) (24-44) % Monocytes (Manual) (0.0-12.0) % Platelet Estimate (NORMAL) RBC Morphology Puncture Site pCO2 (35-45) mmHg pO2 (75-100) mmHg Base Excess (-2.0-2.0) O2 Saturation (94-100) g/dF ABG pH (7.35-7.45) ABG HCO3 (22-28) ABG O2 Sat (Measured) (95-100) % Brandon Test A-a Gradient a/A Ratio Hemoglobin Carboxyhemoglobin (0.0-6.9) % THgb Methemoglobin (1.4-1.5) % Temperature C POC O2 Flow Rate % Sodium (137-145) mmol/L Potassium (3.5-5.1) mmol/L Chloride (98-107) mmol/L Carbon Dioxide (22-30) mmol/L Anion Gap (5-15) MEQ/L BUN (9-20) mg/dL Creatinine (0.66-1.25) mg/dL Estimated GFR ML/MIN Glucose (74-106) mg/dL Lactic Acid (0.4-2.0) Calcium (8.4-10.2) mg/dL Magnesium (1.6-2.3) mg/dL Total Bilirubin (0.2-1.3) mg/dL AST (17-59) U/L ALT (0-50) U/L Alkaline Phosphatase (38-126) U/L Ammonia 16 (9-30) umol/L Creatine Kinase 02467 H (55-170) U/L Serum Total Protein (6.3-8.2) g/dL Albumin (3.5-5.0) g/dL Urine Color (Yellow) Urine Appearance (Clear) Urine pH (4.6-8.0) Ur Specific Beaver (1.005-1.030) Urine Protein (Negative) Urine Glucose (UA) (Negative) mg/dL Urine Ketones (Negative) Urine Blood (Negative) Urine Nitrite (Negative) Urine Bilirubin (Negative) Urine Urobilinogen (0.2) mg/dL Ur Leukocyte Esterase (Negative) U Hyaline Cast (Auto) (0-2) /LPF Urine Microscopic RBC (0-5) /HPF Urine Microscopic WBC (0-5) /HPF Ur Epithelial Cells (None Seen) /HPF Urine Bacteria (None Seen) /HPF Urine Culture Reflexed (NO) Salicylates (2-20) mg/dL Urine Opiates Level (NEGATIVE) Ur Methadone (NEGATIVE) Acetaminophen (10-30) ug/ml Urine Barbiturates (NEGATIVE) Ur Phencyclidine (PCP) (NEGATIVE) Urine Amphetamine (NEGATIVE) U Benzodiazepine Level (NEGATIVE) Urine Cocaine (NEGATIVE) Urine Marijuana (THC) (NEGATIVE) Ethyl Alcohol (0-10) mg/dL Influenza Type A Ag NEGATIVE (NEGATIVE) Influenza Type B Ag NEGATIVE (NEGATIVE) RSV (PCR) NEGATIVE (NEGATIVE) SARS-CoV-2 (PCR) NEGATIVE (NEGATIVE) 12/29/22 12/29/22 12/29/22 Range/Units 22:20 22:11 22:11 WBC (4.0-10.5) x10^3/uL RBC (4.1-5.6) x10^6/uL Hgb (12.5-18.0) g/dL Hct (42-50) % MCV (78-100) fL MCH (26-32) pg MCHC (32-36) g/dL RDW (11.5-14.0) % Plt Count (150-450) x10^3/uL MPV (7.5-11.0) fL Segmented Neutrophils (36.-66.) % Lymphocytes (Manual) (24-44) % Monocytes (Manual) (0.0-12.0) % Platelet Estimate (NORMAL) RBC Morphology Puncture Site pCO2 (35-45) mmHg pO2 (75-100) mmHg Base Excess (-2.0-2.0) O2 Saturation (94-100) g/dF ABG pH (7.35-7.45) ABG HCO3 (22-28) ABG O2 Sat (Measured) (95-100) % Brandon Test A-a Gradient a/A Ratio Hemoglobin Carboxyhemoglobin (0.0-6.9) % THgb Methemoglobin (1.4-1.5) % Temperature C POC O2 Flow Rate % Sodium (137-145) mmol/L Potassium (3.5-5.1) mmol/L Chloride (98-107) mmol/L Carbon Dioxide (22-30) mmol/L Anion Gap (5-15) MEQ/L BUN (9-20) mg/dL Creatinine (0.66-1.25) mg/dL Estimated GFR ML/MIN Glucose (74-106) mg/dL Lactic Acid 2.4 H (0.4-2.0) Calcium (8.4-10.2) mg/dL Magnesium (1.6-2.3) mg/dL Total Bilirubin (0.2-1.3) mg/dL AST (17-59) U/L ALT (0-50) U/L Alkaline Phosphatase (38-126) U/L Ammonia (9-30) umol/L Creatine Kinase (55-170) U/L Serum Total Protein (6.3-8.2) g/dL Albumin (3.5-5.0) g/dL Urine Color Dark Yellow (Yellow) Urine Appearance Cloudy A (Clear) Urine pH 5.0 (4.6-8.0) Ur Specific Beaver 1.025 (1.005-1.030) Urine Protein 300 A (Negative) Urine Glucose (UA) Negative (Negative) mg/dL Urine Ketones Trace A (Negative) Urine Blood Large A (Negative) Urine Nitrite Negative (Negative) Urine Bilirubin Negative (Negative) Urine Urobilinogen 1.0 A (0.2) mg/dL Ur Leukocyte Esterase Trace A (Negative) U Hyaline Cast (Auto) 3-5 A (0-2) /LPF Urine Microscopic RBC 51-100 A (0-5) /HPF Urine Microscopic WBC 3-5 (0-5) /HPF Ur Epithelial Cells Few (None Seen) /HPF Urine Bacteria None Seen (None Seen) /HPF Urine Culture Reflexed ORDERED SEPARATELY (NO) Salicylates (2-20) mg/dL Urine Opiates Level NEGATIVE (NEGATIVE) Ur Methadone NEGATIVE (NEGATIVE) Acetaminophen (10-30) ug/ml Urine Barbiturates NEGATIVE (NEGATIVE) Ur Phencyclidine (PCP) NEGATIVE (NEGATIVE) Urine Amphetamine NEGATIVE (NEGATIVE) U Benzodiazepine Level NEGATIVE (NEGATIVE) Urine Cocaine NEGATIVE (NEGATIVE) Urine Marijuana (THC) NEGATIVE (NEGATIVE) Ethyl Alcohol (0-10) mg/dL Influenza Type A Ag (NEGATIVE) Influenza Type B Ag (NEGATIVE) RSV (PCR) (NEGATIVE) SARS-CoV-2 (PCR) (NEGATIVE) 12/29/22 12/29/22 12/29/22 Range/Units 22:00 22:00 22:00 WBC 26.4 H* (4.0-10.5) x10^3/uL RBC 6.07 H (4.1-5.6) x10^6/uL Hgb 18.1 H (12.5-18.0) g/dL Hct 52.1 H (42-50) % MCV 85.8 (78-100) fL MCH 29.8 (26-32) pg MCHC 34.7 (32-36) g/dL RDW 13.3 (11.5-14.0) % Plt Count 316 (150-450) x10^3/uL MPV 10.0 (7.5-11.0) fL Segmented Neutrophils 89 H (36.-66.) % Lymphocytes (Manual) 2 L (24-44) % Monocytes (Manual) 9 (0.0-12.0) % Platelet Estimate NORMAL (NORMAL) RBC Morphology NORMAL Puncture Site pCO2 (35-45) mmHg pO2 (75-100) mmHg Base Excess (-2.0-2.0) O2 Saturation (94-100) g/dF ABG pH (7.35-7.45) ABG HCO3 (22-28) ABG O2 Sat (Measured) (95-100) % Brandon Test A-a Gradient a/A Ratio Hemoglobin Carboxyhemoglobin (0.0-6.9) % THgb Methemoglobin (1.4-1.5) % Temperature C POC O2 Flow Rate % Sodium 147 H (137-145) mmol/L Potassium 4.3 (3.5-5.1) mmol/L Chloride 111 H (98-107) mmol/L Carbon Dioxide 14 L* (22-30) mmol/L Anion Gap 27.3 H (5-15) MEQ/L BUN 118 H (9-20) mg/dL Creatinine 6.00 H (0.66-1.25) mg/dL Estimated GFR 11.3 ML/MIN Glucose 260 H (74-106) mg/dL Lactic Acid (0.4-2.0) Calcium 9.2 (8.4-10.2) mg/dL Magnesium 3.6 H (1.6-2.3) mg/dL Total Bilirubin 1.50 H (0.2-1.3) mg/dL AST 821 H (17-59) U/L ALT 202 H (0-50) U/L Alkaline Phosphatase 91 (38-126) U/L Ammonia (9-30) umol/L Creatine Kinase (55-170) U/L Serum Total Protein 8.8 H (6.3-8.2) g/dL Albumin 5.6 H (3.5-5.0) g/dL Urine Color (Yellow) Urine Appearance (Clear) Urine pH (4.6-8.0) Ur Specific Beaver (1.005-1.030) Urine Protein (Negative) Urine Glucose (UA) (Negative) mg/dL Urine Ketones (Negative) Urine Blood (Negative) Urine Nitrite (Negative) Urine Bilirubin (Negative) Urine Urobilinogen (0.2) mg/dL Ur Leukocyte Esterase (Negative) U Hyaline Cast (Auto) (0-2) /LPF Urine Microscopic RBC (0-5) /HPF Urine Microscopic WBC (0-5) /HPF Ur Epithelial Cells (None Seen) /HPF Urine Bacteria (None Seen) /HPF Urine Culture Reflexed (NO) Salicylates < 1.0 L (2-20) mg/dL Urine Opiates Level (NEGATIVE) Ur Methadone (NEGATIVE) Acetaminophen < 10 L (10-30) ug/ml Urine Barbiturates (NEGATIVE) Ur Phencyclidine (PCP) (NEGATIVE) Urine Amphetamine (NEGATIVE) U Benzodiazepine Level (NEGATIVE) Urine Cocaine (NEGATIVE) Urine Marijuana (THC) (NEGATIVE) Ethyl Alcohol < 10 (0-10) mg/dL Influenza Type A Ag (NEGATIVE) Influenza Type B Ag (NEGATIVE) RSV (PCR) (NEGATIVE) SARS-CoV-2 (PCR) (NEGATIVE) - Progress Progress: improved Progress Note: Patient will need short-term CT head follow-up as the current CT head shows faint hyperdensities not typical for extra-axial subdural hemorrhage but radiologist unable to entirely exclude hemorrhage 12/30/22 00:[address] Reyna ER physician at [facility] who accepts transfer at 1:18 AM 12/30/22 01:19 42-year-old male presents to our ED via EMS for evaluation of altered mental status. Patient was reported with a hypotensive as well. Upon arrival to our ED patient was confused unable to complete sentences. Patient was reportedly beating his head against a wall while in confinement. Patient had bruising to both hands feet and elbows. Work-up reveals rhabdomyolysis, acute renal failure, hypernatremia dehydration prerenal azotemia hypernatremia. CT head negative for acute intracranial process. CT C-spine negative as well. X-ray of the both feet both hands and both elbows were all negative for acute findings. Toxicology screen unremarkable. Ammonia negative. ABG essentially within normal limits. Patient received 2 doses of ketamine as he was initially combative due to confusion. Patient received a bolus of normal saline. Due to the hypernatremia we changed the IV fluids to D5 half-normal. Patient's body water deficit was calculated to be 2.3 L. COVID test negative. Lactic acid improved. We repeated patient's chemistry after liter of fluids just to assure we are headed in the right direction. Sodium improved, creatinine improved as well as patient's mentation. At time of transfer to [facility] patient was sitting up conversant well-appearing no acute distress. Patient now drinking water from a straw. Mckeon catheter placed. Urine output appears to be increasing as well. Plan of care discussed with patient. He agrees to transfer to [facility] for further evaluation and treatment. Portions of this note were created with voice recognition technology. There may be grammatical, spelling, punctuation or sound alike errors Complexity of problems addressed is high, severe exacerbation with threat to bodily function Critical care time is greater than 194 minutes. Patient presented with altered mental status, acute renal failure, hypernatremia. Immediate intervention required to prevent further deterioration. Complexity of data reviewed and analyzed is extensive. Test ordered test reviewed. Results analyzed and correlated clinically with history and physical examination. Case discussed with ER physician at [facility] who accepts transfer for higher level of care, nephrology services Risk of complication and or risk of morbidity/mortality of patient management is high. Patient requires transfer/hospitalization for higher level of care. Vital stable. Time spent to transfer patient is approximately 20 minutes. Portions of this note were created with voice recognition technology. There may be grammatical, spelling, punctuation or sound alike errors 12/30/22 02:51 12/30/22 02:55 Counseled pt/family regarding: lab results, diagnosis, rad results - Departure Departure Disposition: Transfer Clinical Impression: Altered mental status, Sinus tachycardia, Acute renal failure, Polycythemia, Leukocytosis, Hypernatremia, Lactic acidosis, High anion gap metabolic acidosis, Transaminitis, Hematuria, Proteinuria, Rhabdomyolysis Condition: Stable Critical Care Time: Yes Critical Care Time(excluding separately billable procedures): Critcal > 194 mins Referrals: DOCTOR,NO FAMILY [Primary Care Provider] - Follow up/PCP as directed
[2022-12-29 22:17] LABS: ACETAMINOPHEN < 10 ug/ml (10-30); ALBUMIN 5.6 g/dL (3.5-5.0); ALKALINE PHOSPHATASE 91 U/L (38-126); ANION GAP 27.3 MEQ/L (5-15); BLOOD UREA NITROGEN 118 mg/dL (9-20); CHLORIDE 111 mmol/L (98-107); Calcium 9.2 mg/dL (8.4-10.2); ETHYL ALCOHOL < 10 mg/dL (0-10); Glucose 260 mg/dL (74-106); Potassium 4.3 mmol/L (3.5-5.1); SALICYLATE < 1.0 mg/dL (2-20); SGPT/ALT 202 U/L (0-50); SODIUM 147 mmol/L (137-145); Total Protein 8.8 g/dL (6.3-8.2)
[2022-12-29] MEDS ORDERED: Sodium Chloride 0.9% 1000 ML 1,000 ML ONE (22:17)
[2022-12-29] MEDS: Sodium Chloride 0.9% 1000 ML 1,000 ML IV SCH (22:19)
[2022-12-29 22:24] LABS: EST GLOMERULAR FILTRATION RATE 11.3 ML/MIN
[2022-12-29 22:26] LABS: White Blood Count 26.4 x10^3/uL (4.0-10.5)
[2022-12-29 22:27] LABS: Carbon Dioxide 14 mmol/L (22-30); SGOT/AST 821 U/L (17-59)
[2022-12-29] MEDS: Ketamine HCl 50 MG/ML IV ONE ×3 (22:39→23:43)
[2022-12-29 23:08] LABS: Amphetamine,Urine NEGATIVE (NEGATIVE); Barbiturate,Urine NEGATIVE (NEGATIVE); Benzodiazepine,Urine NEGATIVE (NEGATIVE); Cocaine,Urine NEGATIVE (NEGATIVE); Methadone,Urine NEGATIVE (NEGATIVE); Opiate,Urine NEGATIVE (NEGATIVE); PCP,Urine NEGATIVE (NEGATIVE); THC,Urine NEGATIVE (NEGATIVE)
[2022-12-29 23:12] LABS: A-aADO2 9; ABG HEMOGLOBIN 18.2; ABG POTASSIUM 4.3 (3.5-5.1); ABG SITE LEFT RADIAL; ALLEN TEST OK? YES; ARTERIAL BLD GAS O2 SATURATION 99.1 % (95-100); ARTERIAL BLOOD GAS BASE EXCESS -8.4 (-2.0-2.0); ARTERIAL BLOOD GAS FIO2 21 %; ARTERIAL BLOOD GAS PCO2 25 mmHg (35-45); ARTERIAL BLOOD GAS PO2 109 mmHg (75-100); ARTERIAL BLOOD GAS pH 7.37 (7.35-7.45); HCO3- 14.5 (22-28); HGB O2 SAT 97.1 g/dF (94-100); Methhemoglobin 0.9 % (1.4-1.5); paO2 pAO1 0.92
[2022-12-29 23:21] LABS: Lymphocytes 2 % (24-44); Monocyte 9 % (0.0-12.0); Neutrophils 89 % (36.-66.); Platelet Estimate NORMAL (NORMAL); Total Cells Counted 100
[2022-12-29 23:28] LABS: Appearance Cloudy (Clear); Bacteria None Seen /HPF (None Seen); Bilirubin Negative (Negative); Blood Large (Negative); Epithelial Cells Few /HPF (None Seen); Glucose, Urine Negative (Negative); Ketones Trace (Negative); Leukocyte Esterase Trace (Negative); Nitrite Negative (Negative); Protein,Urine Dip 300 (Negative); RBC 51-100 /HPF (0-5); Specific Gravity 1.025 (1.005-1.030)
[2022-12-29 23:29] LABS: ADD URINE CULTURE? ORDERED SEPARATELY (NO)
[2022-12-29 23:35] LABS: INFLUENZA A NEGATIVE (NEGATIVE); INFLUENZA B NEGATIVE (NEGATIVE); RESPIRATORY SYNCTIAL VIRUS NEGATIVE (NEGATIVE); SARS-CoV-2 Xpert Express NEGATIVE (NEGATIVE)
[2022-12-29] MEDS ORDERED: Dextrose 5% -0.45 NaCl 1000 ML 1,000 ML IV ONE (23:54)
[2022-12-29] MEDS: Dextrose 5% -0.45 NaCl 1000 ML 1,000 ML IV SCH (23:56)
--- NOTE | 2022-12-30 00:21 | XRAY ---
CLINICAL HISTORY:trauma COMPARISON:None TECHNIQUE:An axial non-contrast CT scan of the brain was performed from the skull base to the high parietal region. FINDINGS: Suspicious faint hyperdensities are seen in the left parietal region ( Series 2, Image 29/69 ), not typical of extra-axial hemorrhage, however, the possibility of subarachnoid hemorrhage cannot be entirely excluded. No associating edema or mass effect. Adjustment parenchyma appears normal. No subarachnoid or intra-axial hemorrhage. No definite calvarium fractures. The visualized brain parenchyma shows a normal appearance. Paz-white matter differentiation is maintained. No midline shifts or deformity. Normal size and configuration of the cerebral ventricles. Normal CT appearance of the posterior fossa structures namely the cerebellar hemispheres, brainstem, and cerebellar peduncles. The IACs are unremarkable. The cerebello-pontine angles are clear. The osseous structures in the skull base are unremarkable. The scanned paranasal sinuses are clear. IMPRESSION: Suspicious faint hyperdensities in the left parietal region ( Series 2, Image 29/69 ), are not typical for the extra-axial subdural hemorrhage, however, the possibility of hemorrhage cannot be entirely excluded. Recommended clinical correlation and short interval follow-up CT. No associating other abnormalities were noted. No fracture. Electronically Signed by: Sally Beltran MD. (12/29/2022 23:19:59 TECHNICAL SUPPORT INTERN)
--- NOTE | 2022-12-30 00:23 | XRAY ---
CLINICAL HISTORY:trauma COMPARISON:None. TECHNIQUE:Thin axial CT of the cervical spine was performed with sagittal and coronal reconstructions without contrast. FINDINGS: The cervical lordotic curvature is maintained. Multilevel anterior and posterior osteophytes, uncovertebral joint hypertrophy, and facet arthropathy were noted. Posterior disc osteophyte complex seen at C5-C6 level, slightly encroaching the spinal canal. The vertebral bodies are normal in height. Schmorl's node is seen at the inferior endplate of the C5 vertebral body. The craniovertebral measures are unremarkable. The paravertebral spaces appear normal. No abnormality was detected in the prevertebral region. An incidental note is made of right-sided nasal septal deviation. IMPRESSION: 1. No definite acute fracture or dislocation was detected in the cervical spine. No acute abnormality. 2. Early cervical spondylosis Electronically Signed by: Sally Beltran MD. (12/29/2022 23:23:02 BLUEBERRY GROWER)
[2022-12-30 01:45] LABS: ANION GAP 22.4 MEQ/L (5-15); BILIRUBIN,TOTAL 1.2 mg/dL (0.2-1.3); Calcium 8.3 mg/dL (8.4-10.2); Potassium 4.3 mmol/L (3.5-5.1); Total Protein 8.1 g/dL (6.3-8.2)
[2022-12-30 01:52] LABS: Creatinine 1 5.92 mg/dL (0.66-1.25); EST GLOMERULAR FILTRATION RATE 11.5 ML/MIN
[2022-12-30] MEDS ORDERED: Sodium Chloride 0.9% 1000 ML 1,000 ML ONE (02:29)
[2022-12-30] MEDS: Sodium Chloride 0.9% 1000 ML 1,000 ML IV STA (02:33)
[2022-12-30 02:36] VITALS: BP 122/105; PULSE 116; RESP 26; TEMP 99.5
[2022-12-30 02:54] VITALS: O2SAT 100
--- NOTE | 2022-12-30 08:46 | XRAY ---
Indication: Pain following trauma. 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 No other bony, articular, or soft tissue abnormalities.
--- NOTE | 2022-12-30 08:49 | XRAY ---
Indication: Pain following trauma. 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 Tiny remote appearing nonunited tuft fracture 1st phalanx and old fracture deformity distal 4th finger. No other bony, articular, or soft tissue abnormalities.
--- NOTE | 2022-12-30 08:51 | XRAY ---
Indication: Pain following trauma. Comparison: None 3 view right elbow demonstrates IV catheter in situ. No other bony, articular, or soft tissue abnormalities.
--- NOTE | 2022-12-30 08:51 | XRAY ---
Indication: Pain following trauma. Comparison: None 3 view left elbow demonstrates IV catheter in situ. No other bony, articular, or soft tissue abnormalities.
--- NOTE | 2022-12-30 08:53 | XRAY ---
Indication: Pain following trauma. Comparison: None 3 nonweightbearing views right foot demonstrates tiny navicular/cuboid accessory ossicles. Focal soft tissue swelling lateral to 5th MTP. No other bony, articular, or soft tissue abnormalities.
--- NOTE | 2022-12-30 08:53 | XRAY ---
Indication: Pain following trauma. Comparison: None 3 nonweightbearing views left foot demonstrates tiny anterior talonavicular heterotopic ossifications either developmental versus degenerative. Focal soft tissue swelling lateral to 5th MTP. No other bony, articular, or soft tissue abnormalities.
== END 2022-12-30 03:10 | disposition short-term general hospital (02) ==
LOC: ED 21:40 → EEVIPCON 21:40 → ED 12-30 03:10
DX: R41.82 Altered mental status, unspecified (principal); R00.0 Tachycardia, unspecified; N17.9 Acute kidney failure, unspecified; D75.1 Secondary polycythemia; D72.829 Elevated white blood cell count, unspecified; E87.0 Hyperosmolality and hypernatremia; E87.20 Acidosis, unspecified; R74.01 Elevation of levels of liver transaminase levels; R31.9 Hematuria, unspecified; R80.9 Proteinuria, unspecified; M62.82 Rhabdomyolysis; Z79.899 Other long term (current) drug therapy
CPT/HCPCS: 0241U; 36000; 36415; 36600; 51702; 70450; 72125; 73080; 73130; 73630; 80053; 80143; 80179; 80307; 81001; 82077; 82140; 82375; 82550; 82803; 83605; 83735; 85025; 87040; 87086; 93005; 93041; 94760; 96360; 96361; 96365; 96374; 96376; 99285; 99291; 99292; 82533